=== PATIENT | female | born 1935 | race Caucasian/White ===

== ENCOUNTER 2016-11-16 05:26 | Inpatient (IN) | payer BC ==
[~2016-11-16] VITALS: Ht 167.6 cm; Wt 84.2 kg
--- NOTE | ~2016-11-16 | HP ---
History And Physical [place] [id number] [facility] [place]. [address] NAME: MATHIEU BARCLAY : 37 STATUS : ADM Crys PAT#: [id number] AGE: 80 ADM/REG DATE : 11/16/16 MR#: [id number] REPORT SERV DATE: 11/16/16 DICTATED BY: DATE: REPORT STATUS : Draft TRANSCRIBED BY: MODL DATE: 11/16/16 DATE OF ADMISSION: 11/16/2016 PRIMARY CNC MAINTENANCE MECHANIC: Leila Salas M.D. CHIEF COMPLAINT: Substernal chest pain, radiating to the right shoulder and arm. HISTORY OF PRESENT ILLNESS: Ms. Barclay is a delightful 80-year-old female with a history of permanent pacemaker for complete AV block, hyperlipidemia, diastolic dysfunction, ongoing chest pain with a recent low-risk vasodilator stress test, and a preserved EF on recent echo, who presents with progressive and worsening chest pain both at rest and with exertion. She notes that this chest pain occurs substernally and recently has started radiating to her right shoulder. On Monday, she had a very big episode of this, which she described as a deep pressure, which subsided only after 30 minutes. If she does rest, the pain does seem to get better, but it is not apparent that activities will always provoke, though exertion frequently does provoke these symptoms. She shrugged off this episode on Monday, and when the episodes happened twice yesterday, along with some dyspnea, she asked her brother to bring her to the emergency department. En route, she took some nitroglycerin, which eased her pain. In the emergency department, the patient was noted to have mild troponinemia of 0.33. An EKG was obtained and revealed an atrial paced rhythm with the setting of a left bundle- branch block. There were no ST-segment deviations that met criteria for STEMI in the setting of left bundle-branch block, and the patient was admitted to [facility] for further management under the observation protocol. PAST MEDICAL HISTORY: 1. Chest pain, status post low risk nuclear stress test. 2. Complete AV block, status post cardiac pacemaker. 3. Left lower extremity edema. 4. DVT. 5. Hyperlipidemia. 6. Family history of ischemic heart disease, with sister passing away secondary to this approximately three months ago. 7. Dyspnea. SURGICAL HISTORY: 1. Biotronik pacemaker, status post generator change. 2. Tonsillectomy. 3. Open hiatal hernia surgery. SOCIAL HISTORY: The patient has family members in the room and a brother next door. She is active, but she notes that this yields chest pain. She has never used tobacco products and uses no alcohol and no illicit drugs. FAMILY HISTORY: Family history is notable for coronary artery disease including a sister, History And Physical [address] [address] NAME: MATHIEU BARCLAY : 37 STATUS : ADM Crys PAT#: [id number] AGE: 80 ADM/REG DATE : 11/16/16 MR#: [id number] REPORT SERV DATE: 11/16/16 DICTATED BY: DATE: REPORT STATUS : Draft TRANSCRIBED BY: MODTimothy DATE: 11/16/16 who recently of an VT recently at a very young age. ALLERGIES: THE PATIENT HAS AN ALLERGY PROFILE NOTABLE FOR CONTRAST DYE REACTION. SHE REPORTS THAT SHE HAD RIGOR FOR THREE HOURS FOLLOWING THE ADMINISTRATION OF CONTRAST DYE FOR A CT SCAN. CURRENT MEDICATIONS: In house, none. Home medications: 1. Amlodipine 5 mg p.o. daily. 2. Biotin 5000 mcg 1 daily. 3. Duloxetine 30 mg one capsule p.o. daily. 4. Lasix 20 mg p.o. daily p.r.n. 5. Meclizine 12.5 mg t.i.d. p.r.n. 6. Nitroglycerin sublingual q.5 minutes p.r.n. 7. Tums. 8. Tylenol. 9. Vitamin D3. REVIEW OF SYSTEMS: Except for that which was mentioned above in the HPI, 10-point review of systems was otherwise negative. She denies bleeding diatheses, abdominal discomfort, lightheadedness, dizziness, or syncope as well. PHYSICAL EXAMINATION: VITAL SIGNS: Heart rate 70, blood pressures 168/73, respirations 22, weight unavailable. BMI 29.8. GENERAL: She is a pleasant 80-year-old female, appearing younger than her stated age, in no acute distress. HEENT: Normocephalic, atraumatic. EOMI. Mucous membranes are moist. NECK: Supple without thyromegaly and no elevated JVP. CHEST: She has a pacemaker on the left subcutaneous, which is well healed. LUNGS: Clear to auscultation bilaterally. No wheezes, rales, or rhonchi. CARDIOVASCULAR: The patient has regular rate and rhythm. No murmurs, rubs, or gallops. ABDOMEN: Soft, nontender, and nondistended. EXTREMITIES: She has a small amount of left lower extremity edema and spider veins as well. NEUROLOGIC: She is alert and oriented x4. Cranial nerves 2 through 12 are grossly intact. LABORATORY DATA: Notable for a potassium of 3.6, creatinine of 1, GFR of 61. White count of 6.6, hemoglobin of 13.4, and an INR of 1. Troponin was 0.33. IMAGING: Chest x-ray reveals no acute cardiopulmonary abnormalities. The pacemaker is in site. An EKG reveals an A-paced rhythm with a left bundle-branch block without significant ST-segment discordance or concordance. Echo performed in 09/2016 revealed an EF of 55% with mild AI and [id number] TR. There was also diastolic dysfunction. History And Physical [address] [address] NAME: MATHIEU BARCLAY : 37 STATUS : ADM Crys PAT#: [id number] AGE: 80 ADM/REG DATE : 11/16/16 MR#: [id number] REPORT SERV DATE: 11/16/16 DICTATED BY: DATE: REPORT STATUS : Draft TRANSCRIBED BY: LYDIA DATE: 11/16/16 Stress test performed on 09/29 revealed no ischemia and an EF of 52%, it was felt to be low risk. ASSESSMENT AND PLAN: Ms. Barclay is a 80-year-old female, who presents with acute coronary syndrome. She has a positive troponin and a story, which is concerning for ischemia, despite the fact that she recently had a negative low-risk stress test. I think she has risk factors, which are concerning, namely the fact that she has a history now of early coronary artery disease in a female member of her family, who . Most certainly, given these findings, she warrants left heart catheterization. We will pursue this today as it relates to her dye allergy, and we will premedicate her with our protocols including methylprednisolone and Benadryl. She had been seen by my colleague, Angie Clinton, who agreed that left heart catheterization should be ordered. We will be getting a lipid profile, and start her empirically on atorvastatin high dose 40 mg p.o. at bedtime. We will also start her on metoprolol 12.5 mg p.o. b.i.d. She had some home medications that I think would be reasonable. I add back including some amlodipine. However, if she ends up having coronary artery disease, particularly if this results in a reduced ejection fraction, obviously an ANGEL inhibitor would be reasonable for her as well. She will maintain on daily aspirin as well. EPL/MODL Ismael Spain IV, MD / [id number] CC: Jah Tripp III, D.O.
[~2016-11-16 05:26] MED LIST: B COMPLEX-C OR; FISH OIL PO; LEXAPRO20 PO; LEXAPRO5 MG PO; MCZ25 PO; MOBIC15 MG PO; TUMSROLL PO; X25 PO; ZANTAC 150 PO; ZANTAC150 MG PO; ZEBETA5 PO; ZOFRAN8 PO
[2016-11-16 06:26] LABS: BASOPHILS 0.5 %; BASOPHILS ABSOLUTE 0.03 10/3/uL (0.0-0.16); EOSINOPHILS 1.8 %; EOSINOPHILS ABSOLUTE 0.12 10/3/uL (0.0-0.53); HEMATOCRIT 39.7 % (36.0-48.0); HEMOGLOBIN 13.4 g/dL (12.0-16.0); IMMATURE GRANULOCYTES 0.2 %; IMMATURE GRANULOCYTES ABSOLUTE 0.01 10/3/uL (0.0-0.11); LYMPHOCYTES 31.5 %; LYMPHOCYTES ABSOLUTE 2.09 10/3/uL (0.67-4.30); MEAN CORPUS HGB CONC 33.8 g/dL (32.0-36.0); MEAN PLATELET VOLUME 10.1 fL (9.2-13.0); MONOCYTES 6.8 %; MONOCYTES ABSOLUTE 0.45 10/3/uL (0.21-1.20); NEUTROPHILS 59.2 %; NEUTROPHILS ABSOLUTE 3.94 10/3/uL (2.02-8.40); PLATELET COUNT 169 10/3/uL (150-400); RBC DISTRIBUTION WIDTH 13.1 % (12.0-16.0); RED CELL COUNT 4.46 10/6/uL (4.0-5.6); WHITE BLOOD CELLS 6.6 10/3/uL (4.5-10.5)
[2016-11-16 06:27] LABS: ER CBC TAT 0 Hrs 06 MinsNP; MANUAL DIFF NO %
[2016-11-16 06:33] LABS: PARTIAL THROMBO TIME 27.4 SEC (22.5-37.2); PROTIME (NOT ORD) 12.8 SEC (12.0-14.5)
[2016-11-16 06:42] LABS: ALBUMIN 3.4 G/DL (3.5-5.0); ALKALINE PHOSPHATASE 124 U/L (45-117); BUN (BLOOD UREA NITROGEN) 16 MG/DL (6-23); CALCIUM, SERUM 9.8 MG/DL (8.5-10.4); CHEST PAIN PROFILE TAT 0 Hrs 22 Mins; CHLORIDE, SERUM 109 MMOL/L (96-112); CO2 (CARBON DIOXIDE) 23 MMOL/L (24-34); CREATININE 1.01 MG/DL (0.55-1.02); DIRECT BILIRUBIN < 0.1 MG/DL (0.0-0.4); GFR AFRICAN AMERICAN 61 ML/MIN (>=60); GFR NON AFRICAN AMERICAN 53 ML/MIN (>=60); GLUCOSE, SERUM 100 MG/DL (60-99); INDIRECT BILIRUBIN(NOT ORDER) 0.6 MG/DL (0.1-0.9); POTASSIUM, SERUM 3.6 MMOL/L (3.5-5.3); SGOT(AST) 19 U/L (5-40); SGPT(ALT) 21 U/L (5-65); SODIUM, SERUM 142 MMOL/L (135-148); TOTAL BILIRUBIN 0.7 MG/DL (0-1.2); TOTAL PROTEIN 7.1 G/DL (6.0-8.5); TROPONIN I 0.33 NG/ML (<0.05)
[2016-11-16] MEDS ORDERED: CYMBALTA30 PO (08:00)
[2016-11-16] MEDS ORDERED: NITROSTAT0.4 MG SL (08:00)
[2016-11-16] MEDS ORDERED: NORV5 PO (08:00)
[2016-11-16] MEDS ORDERED: BIOTIN5 MG PO (08:01)
[2016-11-16] MEDS ORDERED: TUMS E-X750 M2 PO (08:01)
[2016-11-16] MEDS ORDERED: VITAMIN D3 PO (08:02)
[2016-11-16] MEDS ORDERED: 8 HOUR650 MG PO (08:02)
[2016-11-16 11:00] LABS: TROPONIN I 0.46 NG/ML (<0.05)
[2016-11-16 12:29] LABS: CHOL/HDL RATIO(NOT ORDER) 4.3 (0-5)
[2016-11-17 05:06] LABS: CHOL/HDL RATIO(NOT ORDER) 4.1 (0-5)
[2016-11-17 05:11] LABS: BASOPHILS 0 %; EOSINOPHILS 0 %; HEMATOCRIT 38.4 % (36.0-48.0); HEMOGLOBIN 12.7 g/dL (12.0-16.0); IMMATURE GRANULOCYTES 0.3 %; IMMATURE GRANULOCYTES ABSOLUTE 0.03 10/3/uL (0.0-0.11); LYMPHOCYTES 11.3 %; LYMPHOCYTES ABSOLUTE 1.09 10/3/uL (0.67-4.30); MEAN CORPUS HGB CONC 33.1 g/dL (32.0-36.0); MEAN CORPUSCULAR HEMOGLOB 29.6 pg (26.0-34.0); MEAN CORPUSCULAR VOLUME 89.5 fL (80-100); MEAN PLATELET VOLUME 10.6 fL (9.2-13.0); MONOCYTES 3.9 %; MONOCYTES ABSOLUTE 0.38 10/3/uL (0.21-1.20); NEUTROPHILS 84.5 %; NEUTROPHILS ABSOLUTE 8.17 10/3/uL (2.02-8.40); PLATELET COUNT 194 10/3/uL (150-400); RBC DISTRIBUTION WIDTH 13.1 % (12.0-16.0); RED CELL COUNT 4.29 10/6/uL (4.0-5.6)
[2016-11-17 05:13] LABS: MANUAL DIFF NO %; WHITE BLOOD CELLS 9.7 10/3/uL (4.5-10.5)
[2016-11-17] MEDS ORDERED: ASAB PO (10:05)
[2016-11-17] MEDS ORDERED: LOP25 PO (10:06)
[2016-11-17] MEDS ORDERED: BRILINTA90 MG PO (10:06)
[2016-11-17] MEDS ORDERED: LIPITOR40 PO (10:06)
== END 2016-11-17 11:15 | disposition home or self-care (01) | DRG 247 ==
LOC: ENRESERVDT → ENRESERV → ENRESERVTM → CANRESERV → ER 05:26 → CDU1 07:05 → SSU1 07:05 → CDU1 08:34 → SSU1 17:06
PROVIDERS: Specialist
PROC: 027135Z Dilation of Coronary Artery, Two Arteries with Two Drug-eluting Intraluminal Devices, Percutaneous Approach (ICD-10-PCS; principal; 2016-11-16)
PROC: 4A023N7 Measurement of Cardiac Sampling and Pressure, Left Heart, Percutaneous Approach (ICD-10-PCS; 2016-11-16)
PROC: B2111ZZ Fluoroscopy of Multiple Coronary Arteries using Low Osmolar Contrast (ICD-10-PCS; 2016-11-16)
PROC: B2151ZZ Fluoroscopy of Left Heart using Low Osmolar Contrast (ICD-10-PCS; 2016-11-16)
DX: I21.4 Non-ST elevation (NSTEMI) myocardial infarction (principal); I10 Essential (primary) hypertension; I25.10 Atherosclerotic heart disease of native coronary artery without angina pectoris; E78.5 Hyperlipidemia, unspecified; Z95.0 Presence of cardiac pacemaker; Z86.718 Personal history of other venous thrombosis and embolism; Z82.49 Family history of ischemic heart disease and other diseases of the circulatory system; Z91.041 Radiographic dye allergy status; Z79.899 Other long term (current) drug therapy; Z88.5 Allergy status to narcotic agent
CPT/HCPCS: 71010; 80048; 80061; 80076; 83690; 83735; 84460; 84484; 85025; 85610; 85730; 93005; 93458; 99152; 99153; 99291; A9270-GY; C1725; C1769; C1874; C1887; C1894; C9600; J0583; J1200; J2250; J2920; J3010; Q9967